=== PATIENT | female | born 1980 ===

== ENCOUNTER 2020-08-13 08:15 | Day surgery (SDC) | payer OTHER ==
[2020-08-13] MEDS ORDERED: fentaNYL 100 MCG/2 ML SDV ONE (08:46)
[2020-08-13] MEDS ORDERED: Dexamethasone 4 MG/ML 5 ML MDV ONE (08:46)
[2020-08-13] MEDS ORDERED: Propofol 200 MG/20 ML SDV ONE (08:46)
[2020-08-13] MEDS ORDERED: Midazolam 1 MG/ML 2 ML SDV ONE (08:46)
[2020-08-13] MEDS ORDERED: Ketorolac 30 MG/ML SDV ONE (08:46)
[2020-08-13] MEDS ORDERED: Lidocaine 2% 5 ML SDV ONE (08:46)
[2020-08-13] MEDS ORDERED: Ondansetron 4 MG/2 ML SDV ONE (08:46)
--- NOTE | 2020-08-13 09:24 | PCM.PREANE ---
Preanesthetic Assessment - Anesthesia/Transfusion/Family Hx Anesthesia History: Prior Anesthesia Without Reaction Family History of Anesthesia Reaction: No Transfusion History: No Prior Transfusion(s) - Review of Systems General: No Symptoms Pulmonary: No Symptoms Cardiovascular: No Symptoms Gastrointestinal: No Symptoms Neurological: No Symptoms Other: Reports: None - Physical Assessment NPO Status Date: 08/13/20 NPO Status Time: 00:01 Vital Signs: Last Vital Signs Temp 97.7 F 08/13/20 08:50 Pulse 79 08/13/20 08:50 Resp 16 08/13/20 08:50 BP 123/82 08/13/20 08:50 Pulse Ox 96 08/13/20 08:50 Height: 5 ft 3 in Weight: 173 lb ASA Class: 2 Mental Status: Alert & Oriented x3 Airway Class: Mallampati = 2 Dentition: Reports: Normal Dentition ROM/Head Extension: Full Lungs: Clear to Auscultation, Normal Respiratory Effort Cardiovascular: Regular Rate, Regular Rhythm - Allergies Allergies/Adverse Reactions: Allergies Allergy/AdvReac Type Severity Reaction Status Date / Time levofloxacin [From Levaquin] Allergy Anaphylactic Verified 08/13/20 08:54 Shock tetanus and diphtheria Allergy swelling/re Verified 08/13/20 08:54 toxoids ddness - Acknowledgements Anesthesia Type Planned: General Anesthesia Pt an Appropriate Candidate for the Planned Anesthesia: Yes Alternatives and Risks of Anesthesia Discussed w Pt/Guardian: Yes Pt/Guardian Understands and Agrees with Anesthesia Plan: Yes Additional Comments: npo after mn sky no cv problems tob occ vape etoh none obesity bmi 31 admitted to hospital 13 years ago for rising creatinine and admitted for 4 days with resolution of renal failure thought related to dehydration and ibuprofen use par no questions PreAnesthesia Questionnaire HEENT History: Reports: Other (See Below) Other HEENT History: legally blind in right eye, wears glasses Cardiovascular History: Reports: None Respiratory History: Reports: None Gastrointestinal History: Reports: Other (See Below) Other Gastrointestinal History: gastric ulcer Genitourinary History: Reports: Other (See Below) Other Genitourinary History: hx acute kidney failure approx 16 years ago [employer] History: Reports: , Spontaneous Musculoskeletal History: Reports: None Neurological History: Reports: None Psychiatric History: Reports: Anxiety Endocrine/Metabolic History: Reports: Obesity/BMI 30+ Hematologic History: Reports: None Immunologic History: Reports: None Oncologic (Cancer) History: Reports: None Dermatologic History: Reports: None - Past Surgical History Head Surgeries/Procedures: Reports: None HEENT Surgical History: Reports: None Cardiovascular Surgical History: Reports: None Respiratory Surgical History: Reports: None GI Surgical History: Reports: None Female Surgical History: Reports: Breast Implant, D&C Endocrine Surgical History: Reports: None Neurological Surgical History: Reports: None Musculoskeletal Surgical History: Reports: None Oncologic Surgical History: Reports: None Dermatological Surgical History: Reports: None - SUBSTANCE USE Tobacco Use Status *Q: Light Tobacco User Tobacco Use Within Last Twelve Months: Vaping - HOME MEDS Home Medications: Home Meds Omeprazole 20 mg PO BID 08/09/20 [History] - CURRENT (IN HOUSE) MEDS Current Meds: Current Medications Discontinued Medications Dexamethasone (Dexamethasone 4 Mg/Ml 5 Ml Mdv) Confirm Administered Dose 20 mg .ROUTE .STK-MED ONE Stop: 08/13/20 08:47 Fentanyl (Fentanyl 100 Mcg/2 Ml Sdv) Confirm Administered Dose 100 mcg .ROUTE .STK-MED ONE Stop: 08/13/20 08:47 Ketorolac Tromethamine (Ketorolac 30 Mg/Ml Sdv) Confirm Administered Dose 30 mg .ROUTE .STK-MED ONE Stop: 08/13/20 08:47 Lidocaine (Lidocaine 2% 5 Ml Sdv) Confirm Administered Dose 5 ml .ROUTE .STK-MED ONE Stop: 08/13/20 08:47 Midazolam HCl (Midazolam 1 Mg/Ml 2 Ml Sdv) Confirm Administered Dose 2 mg .ROUTE .STK-MED ONE Stop: 08/13/20 08:47 Ondansetron HCl (Ondansetron 4 Mg/2 Ml Sdv) Confirm Administered Dose 4 mg .ROUTE .STK-MED ONE Stop: 08/13/20 08:47 Propofol (Propofol 200 Mg/20 Ml Sdv) Confirm Administered Dose 400 mg .ROUTE . STK-MED ONE Stop: 08/13/20 08:47
[2020-08-13] MEDS ORDERED: ePHEDrine 50 MG/ML SDV ONE (11:09)
[2020-08-13] MEDS ORDERED: Ondansetron 4 MG/2 ML SDV IVPUSH PRN (11:25)
[2020-08-13] MEDS ORDERED: Acetaminophen/oxyCODONE 325-5 MG Tab PO PRN ×2 (11:25)
[2020-08-13] MEDS ORDERED: Ketorolac 30 MG/ML SDV IVPUSH PRN (11:25)
[2020-08-13] MEDS ORDERED: Promethazine 25 MG/ML SDV IM PRN (11:25)
[2020-08-13] MEDS ORDERED: Ketorolac 30 MG/ML SDV IVPUSH ONE (11:25)
[2020-08-13] MEDS ORDERED: Morphine 4 MG/ML Syringe IVPUSH PRN (11:25)
--- NOTE | 2020-08-13 11:29 | PCM.OPNOTE ---
- General Post-Op/Procedure Note Date of Surgery/Procedure: 08/13/20 Operative Procedure(s): Diagnostic Hysteroscopy. Endometrial ablation Findings: Normal sized anteverted uterus Uterus - 7cm , Cervix 3cm , Depth ablated 4cm Normal endometrial cavity . no lesions Pre Op Diagnosis: Abnormal Uterine bleeding Post-Op Diagnosis: same Anesthesia Technique: General ET Tube Primary Surgeon: Elsie Cheney Fluid Replacement, Intraop: 1,000 EBL in mLs: 0 Complications: None Condition: Good
[2020-08-13] MEDS ORDERED: fentaNYL 100 MCG/2 ML SDV IVPUSH PRN (11:43)
--- NOTE | 2020-08-13 11:47 | PCM.POSTAN ---
POST ANESTHESIA ASSESSMENT - MENTAL STATUS Mental Status: Alert, Oriented - VITAL SIGNS Vital Signs: Last Vital Signs Temp 36.5 C 08/13/20 08:50 Pulse 96 08/13/20 11:40 Resp 19 08/13/20 11:40 BP 108/70 08/13/20 11:40 Pulse Ox 99 08/13/20 11:40 - RESPIRATORY Respiratory Status: Respiratory Rate WNL, Airway Patent, O2 Saturation Stable - CARDIOVASCULAR CV Status: Pulse Rate WNL, Blood Pressure Stable - GASTROINTESTINAL GI Status: No Symptoms - PAIN Pain Score: 2 - POST OP HYDRATION Hydration Status: Adequate & Stable
--- NOTE | 2020-08-13 12:37 | PCM48HPAN ---
Post Anesthesia Note - EVALUATION WITHIN 48HRS OF ANESTHETIC Vital Signs in Normal Range: Yes Patient Participated in Evaluation: Yes Respiratory Function Stable: Yes Airway Patent: Yes Cardiovascular Function Stable: Yes Hydration Status Stable: Yes Pain Control Satisfactory: Yes (cramping) Nausea and Vomiting Control Satisfactory: Yes Mental Status Recovered: Yes Vital Signs: Last Vital Signs Temp 36.2 C 08/13/20 11:50 Pulse 95 08/13/20 12:05 Resp 14 08/13/20 12:05 BP 115/65 08/13/20 12:05 Pulse Ox 95 08/13/20 12:05
--- NOTE | 2020-08-16 08:04 | OR ---
SURGEON: LILI HUGO DATE OF PROCEDURE: 08/13/2020 PREOPERATIVE DIAGNOSIS: 39-year-old P3-0-1-3 with abnormal uterine bleeding. POSTOPERATIVE DIAGNOSIS: 39-year-old P3-0-1-3 with abnormal uterine bleeding. PROCEDURE: Diagnostic hysteroscopy with endometrial ablation with Kylah. ESTIMATED BLOOD LOSS: 5 mL. IV FLUIDS: 1000. NOTES AND FINDINGS: A normal-sized anteverted uterus. Hysteroscopy showed normal ostia and normal uterine cavity. BRIEF HISTORY ABOUT THE PATIENT: She is a 39-year-old P3-0-1-3 who was complaining of irregular heavy menses. The patient had workup done which showed EMB negative. Prolactin was normal. The patient was placed on hormonal contraception. However, she was still having bleeding and this was affecting her quality of life and her sex life. As a result, the patient desired to go for endometrial ablation. The patient's control method is vasectomy. She was informed of the importance contraception after ablation and that endometrial ablation is not a contraception. She was explained the risks, benefits, and alternatives and she decided to proceed. DESCRIPTION OF PROCEDURE: The patient was taken to the operating room where general anesthesia was performed without difficulty. She was prepared and draped in the dorsal lithotomy position with Bright stirrups. She was prepared and draped in the normal sterile fashion. A bimanual exam was done and the above-noted finding was known. A bivalve speculum was then used to expose the cervix. The anterior lip of the cervix was grasped with an Allis clamp. The uterus was dilated to accommodate the 5 mm hysteroscope. The above-noted findings was noted, after which the uterus was sounded and noted to be about 7 cm. The cervix was measured, it was about 3 cm. So, the Kylah device was then set up for and inserted into the cavity and deployed. The integrity test of machine and device was done which was normal. The device was then turned on and total burn time was 120 seconds, after which the device was removed. The patient tolerated the procedure well. All instrument and pad counts were correct x2. FABIAN / LUDA /[id number] [facility] HOSPITALAnyi
== END 2020-08-13 12:50 | disposition home or self-care (01) ==
LOC: MW.SDS 08:15
PROVIDERS: ATTEND Obstetrics & Gynecology
DX: N92.4 Excessive bleeding in the premenopausal period (principal); N93.9 Abnormal uterine and vaginal bleeding, unspecified; Z88.7 Allergy status to serum and vaccine; Z88.1 Allergy status to other antibiotic agents; Z98.890 Other specified postprocedural states; Z87.891 Personal history of nicotine dependence
CPT/HCPCS: 36415; 84703; 85025; J1100; J1885; J2250; J2405; J2704; J3010